=== PATIENT | male | born 1960 | race Caucasian/White ===

== ENCOUNTER 2018-09-13 01:46 | Observation (INO) | payer OTHER, MEDICAID ==
[2018-09-13 04:57] LABS: ADD MAN DIFF? NO
[2018-09-13 05:01] LABS: BASOPHILS % 0.5 % (0.0-2.0); EOSINOPHILS # 0.1 10^3/ul (0.0-0.5); EOSINOPHILS % 1.1 % (0.0-7.0); HEMATOCRIT 39.9 % (42.0-52.0); HEMOGLOBIN 14.5 g/dl (14.0-18.0); LYMPHOCYTES # 1.6 10^3/ul (0.8-2.9); LYMPHOCYTES % 24.6 % (15.0-51.0); MEAN CORPUSCULAR HEMOGLOBIN 31.3 pg (29.0-33.0); MEAN CORPUSCULAR HGB CONC 36.3 g/dl (32.0-37.0); MEAN PLATELET VOLUME 9.4 fl (7.4-10.4); MONOCYTE # 0.5 10^3/ul (0.3-0.9); MONOCYTES % 6.8 % (0.0-11.0); NEUTROPHIL # 4.4 10^3/ul (1.6-7.5); NEUTROPHILS % 66.8 % (39.0-77.0); PLATELET COUNT 216 10^3/UL (140-415); RED BLOOD COUNT 4.64 10^6/ul (4.70-6.10); RED CELL DISTRIBUTION WIDTH 12.4 % (11.5-14.5)
[2018-09-13 05:01] LABS: WHITE BLOOD COUNT 6.6 10^3/ul (4.8-10.8)
[2018-09-13 05:19] LABS: INR 0.89; PARTIAL THROMBOPLASTIN TIME 24.8 Sec (23.0-35.0); PROTIME 12.1 Sec (11.9-14.9); PT RATIO 0.9
[2018-09-13 05:30] LABS: ALANINE AMINOTRANSFERASE 57 IU/L (13-69); ALBUMIN 4.3 g/dl (3.3-4.9); ALBUMIN/GLOBULIN RATIO 1.19; ALKALINE PHOSPHATASE 192 IU/L (42-121); ANION GAP 10 (5-13); ASPARTATE AMINO TRANSFERASE 29 IU/L (15-46); BILIRUBIN,INDIRECT 0.1 mg/dl (0-1.1); BILIRUBIN,TOTAL 0.1 mg/dl (0.2-1.3); BLOOD UREA NITROGEN 12 mg/dl (7-20); CALCIUM 9.9 mg/dl (8.4-10.2); CARBON DIOXIDE 28 mmol/L (21-31); CHLORIDE 102 mmol/L (97-110); CREATININE 0.52 mg/dl (0.61-1.24); Estimated GFR > 60 mL/min (>60); GLUCOSE 231 mg/dl (70-220); SODIUM 140 mmol/L (135-144); TOTAL PROTEIN 7.9 g/dl (6.1-8.1)
[2018-09-13 05:39] LABS: TROPONIN-I < 0.012 ng/ml (0.000-0.120)
[2018-09-13 05:45] LABS: PHENYTOIN (DILANTIN) < 3.0 ug/ml (10.0-20.0)
[2018-09-13] MEDS ORDERED: ONDANSETRON 4 MG INJ IV (06:30)
[2018-09-13] MEDS ORDERED: ACETAMINOPHEN 325 MG TAB PO (06:30)
[2018-09-13] MEDS ORDERED: DOCUSATE SODIUM 100 MG CAP PO (06:30)
[2018-09-13] MEDS ORDERED: BISACODYL (EC) 5 MG TAB PO (06:30)
[2018-09-13] MEDS ORDERED: NACL 0.9% 3 ML SYG IV (06:30)
[2018-09-13] MEDS ORDERED: NITROGLYCERIN (SL) 0.4 MG TAB SL (06:30)
[2018-09-13 06:48] LABS: CHOLESTEROL 176 mg/dl (100-200); HDL CHOLESTEROL 58 mg/dl (28-71); LDL CHOLESTEROL,CALCULATED 106 mg/dl; TRIGLYCERIDES 61 mg/dl (0-149)
[2018-09-13] MEDS ORDERED: LORAZEPAM 4 MG/ML VIAL IV (07:00)
[2018-09-13 07:32] LABS: HEMOGLOBIN A1C 11.8 % (0-5.9)
[2018-09-13 08:07] LABS: HEPATITIS B SURFACE ANTIGEN NEGATIVE (NEGATIVE)
[2018-09-13 08:24] LABS: HEPATITIS B SURFACE ANTIBODY NEGATIVE (NEGATIVE)
[2018-09-13 08:24] LABS: HEPATITIS C VIRAL ANTIBODY NEGATIVE (NEGATIVE); HIV 1&2 ANTIBODY NEGATIVE (NEGATIVE)
[2018-09-13] MEDS: INSULIN ASPART [NOVOLOG] 3 ML PEN SC ×7 (09:00→21:00)
[2018-09-13] MEDS ORDERED: GLUCOSE GEL 15 GRAM TUBE BUCCAL (09:30)
[2018-09-13] MEDS ORDERED: GLUCAGON 1 MG INJ IM (09:30)
[2018-09-13] MEDS ORDERED: DEXTROSE 50% 50 ML SYRINGE IV ×2 (09:30)
[2018-09-13] MEDS ORDERED: GLUCOSE GEL 15 GRAM TUBE PO ×2 (09:30)
[2018-09-13] MEDS: ASPIRIN 81 MG TAB PO (10:01)
[2018-09-13] MEDS: ATORVASTATIN 10 MG TAB PO (10:01)
[2018-09-13] MEDS: DONEPEZIL 10 MG TAB PO (10:02)
[2018-09-13] MEDS: PHENYTOIN 100 MG CAP PO ×2 (10:27→21:48)
[2018-09-13] MEDS: LEVETIRACETAM 500 MG TAB PO ×2 (10:27→21:48)
[2018-09-13 11:15] LABS: CREATINE KINASE 54 IU/L (23-200)
[2018-09-13 11:25] LABS: CK INDEX 2.1; CK-MB 1.16 ng/ml (0.0-2.4); TROPONIN-I < 0.012 ng/ml (0.000-0.120)
[2018-09-13 14:42] LABS: CREATINE KINASE 50 IU/L (23-200)
[2018-09-13 14:56] LABS: CK INDEX 1.7; CK-MB 0.86 ng/ml (0.0-2.4); TROPONIN-I < 0.012 ng/ml (0.000-0.120)
[2018-09-13] MEDS ORDERED: INSULIN GLARGINE [LANTus] (100 UNITS/ML) SYG SC (21:00)
[2018-09-13] MEDS: ACCU-CHEK XX (21:43)
[2018-09-13] MEDS: INSULIN GLARGINE [LANTus] (100 UNITS/ML) SYG SC (22:05)
[2018-09-14 05:50] LABS: ADD MAN DIFF? NO
[2018-09-14 05:54] LABS: WHITE BLOOD COUNT 4.8 10^3/ul (4.8-10.8)
[2018-09-14 05:54] LABS: BASOPHILS % 0.8 % (0.0-2.0); EOSINOPHILS # 0.1 10^3/ul (0.0-0.5); EOSINOPHILS % 2.1 % (0.0-7.0); HEMATOCRIT 39.1 % (42.0-52.0); HEMOGLOBIN 13.9 g/dl (14.0-18.0); LYMPHOCYTES # 1.9 10^3/ul (0.8-2.9); MEAN CORPUSCULAR HEMOGLOBIN 31.4 pg (29.0-33.0); MEAN CORPUSCULAR HGB CONC 35.5 g/dl (32.0-37.0); MEAN CORPUSCULAR VOLUME 88.3 fl (82.0-101.0); MEAN PLATELET VOLUME 9.5 fl (7.4-10.4); MONOCYTE # 0.4 10^3/ul (0.3-0.9); MONOCYTES % 9.2 % (0.0-11.0); NEUTROPHIL # 2.3 10^3/ul (1.6-7.5); NEUTROPHILS % 48.7 % (39.0-77.0); PLATELET COUNT 208 10^3/UL (140-415); RED BLOOD COUNT 4.43 10^6/ul (4.70-6.10); RED CELL DISTRIBUTION WIDTH 12.6 % (11.5-14.5)
[2018-09-14 06:42] LABS: ALANINE AMINOTRANSFERASE 47 IU/L (13-69); ALBUMIN 3.7 g/dl (3.3-4.9); ALBUMIN/GLOBULIN RATIO 1.15; ALKALINE PHOSPHATASE 134 IU/L (42-121); ANION GAP 10 (5-13); ASPARTATE AMINO TRANSFERASE 22 IU/L (15-46); BILIRUBIN,INDIRECT 0.1 mg/dl (0-1.1); BILIRUBIN,TOTAL 0.1 mg/dl (0.2-1.3); BLOOD UREA NITROGEN 18 mg/dl (7-20); CALCIUM 9.5 mg/dl (8.4-10.2); CARBON DIOXIDE 26 mmol/L (21-31); CHLORIDE 104 mmol/L (97-110); CREATININE 0.65 mg/dl (0.61-1.24); Estimated GFR > 60 mL/min (>60); GLUCOSE 267 mg/dl (70-220); POTASSIUM 4.3 mmol/L (3.5-5.1); SODIUM 140 mmol/L (135-144); TOTAL PROTEIN 6.9 g/dl (6.1-8.1)
[2018-09-14] MEDS: INSULIN ASPART [NOVOLOG] 3 ML PEN SC ×4 (07:46→12:52)
[2018-09-14] MEDS: PHENYTOIN 100 MG CAP PO (08:44)
[2018-09-14] MEDS: metFORMIN 500 MG TAB PO (08:44)
[2018-09-14] MEDS: LEVETIRACETAM 500 MG TAB PO (08:44)
[2018-09-14] MEDS: ATORVASTATIN 10 MG TAB PO (08:44)
[2018-09-14] MEDS: ASPIRIN 81 MG TAB PO (08:44)
[2018-09-14] MEDS: DONEPEZIL 10 MG TAB PO (08:44)
[2018-09-14] MEDS ORDERED: LORAZEPAM 2 MG INJ IV (11:00)
[2018-09-14] MEDS ORDERED: INSULIN GLARGINE [LANTus] (100 UNITS/ML) SYG SC (21:00)
== END 2018-09-14 14:30 | disposition home or self-care (01) ==
LOC: E/R 01:46 → 6WM 05:52
PROVIDERS: Family Medicine
DX: R07.9 Chest pain, unspecified (principal); E11.9 Type 2 diabetes mellitus without complications; Z79.4 Long term (current) use of insulin; G40.909 Epilepsy, unspecified, not intractable, without status epilepticus; F03.90 Unspecified dementia, unspecified severity, without behavioral disturbance, psychotic disturbance, mood disturbance, and anxiety
CPT/HCPCS: 36415; 71045; 80053; 80061; 80185; 82550; 82553; 82962; 83036; 83735; 84443; 84484; 85025; 85610; 85730; 86703; 86706; 86803; 87340; 93005; 93306; 99285-25; G0378

== ENCOUNTER 2018-11-01 22:38 | Emergency (ER) | payer MEDICARE, OTHER, MEDICAID ==
[2018-11-02] MEDS: SOD CHLORIDE 0.9% 680 ML IV (02:01)
[2018-11-02 02:06] LABS: URINE BLOOD (Dip) POC Negative (NEGATIVE); URINE KETONES (Dip) POC Negative (NEGATIVE); URINE LEUKOCYTE EST (Dip) POC Negative (NEGATIVE); URINE NITRITE (Dip) POC Negative (NEGATIVE); URINE TOTAL PROTEIN POC Negative (NEGATIVE)
[2018-11-02 02:07] LABS: ADD MAN DIFF? NO
[2018-11-02 02:22] LABS: ADD UMIC YES; UR ASCORBIC ACID NEGATIVE (NEGATIVE); UR BILIRUBIN (Dip) NEGATIVE (NEGATIVE); UR BLOOD (Dip) 1+ mg/dL (NEGATIVE); UR CLARITY CLEAR (CLEAR); UR COLOR COLORLESS (YELLOW); UR GLUCOSE (Dip) 2+ mg/dL (NEGATIVE); UR KETONES (Dip) NEGATIVE (NEGATIVE); UR LEUKOCYTE ESTERASE (Dip) NEGATIVE Leu/ul (NEGATIVE); UR NITRITE (Dip) NEGATIVE (NEGATIVE); UR RBC 0 /HPF (0-5); UR SPECIFIC GRAVITY (Dip) 1.003 (1.003-1.030); UR TOTAL PROTEIN (Dip) NEGATIVE (NEGATIVE); UR UROBILINOGEN (Dip) NEGATIVE (NEGATIVE); UR WBC 0 /HPF (0-5)
[2018-11-02 02:27] LABS: ANION GAP 10 (5-13); BLOOD UREA NITROGEN 17 mg/dl (7-20); CALCIUM 9.3 mg/dl (8.4-10.2); CARBON DIOXIDE 26 mmol/L (21-31); CHLORIDE 103 mmol/L (97-110); CREATININE 0.63 mg/dl (0.61-1.24); Estimated GFR > 60 mL/min (>60); GLUCOSE 184 mg/dl (70-220); MAGNESIUM 1.9 mg/dl (1.7-2.5); PHOSPHORUS 3.7 mg/dl (2.5-4.9); POTASSIUM 3.8 mmol/L (3.5-5.1); SODIUM 139 mmol/L (135-144)
[2018-11-02 02:34] LABS: MODE ROOM AIR; MetHgb Venous 0.3 %; Sample Type Blood venous; Site VENOUS LINE; Venous COHb 0.2 %; Venous Fraction OxyHgb 77.3 %; Venous Oxygen Sat 77.7 mmHG (55.0-75.0); Venous Total Hemglobin 14.1 g/dl
[2018-11-02 02:37] LABS: WHITE BLOOD COUNT 7.2 10^3/ul (4.8-10.8)
[2018-11-02 02:37] LABS: BASOPHILS % 0.4 % (0.0-2.0); EOSINOPHILS # 0.1 10^3/ul (0.0-0.5); EOSINOPHILS % 1.1 % (0.0-7.0); LYMPHOCYTES # 1.5 10^3/ul (0.8-2.9); MEAN CORPUSCULAR HEMOGLOBIN 31.3 pg (29.0-33.0); MEAN CORPUSCULAR HGB CONC 35.1 g/dl (32.0-37.0); MEAN CORPUSCULAR VOLUME 89.2 fl (82.0-101.0); MEAN PLATELET VOLUME 9.4 fl (7.4-10.4); MONOCYTE # 0.6 10^3/ul (0.3-0.9); MONOCYTES % 8.7 % (0.0-11.0); NEUTROPHILS % 68.5 % (39.0-77.0); PLATELET COUNT 190 10^3/UL (140-415); RED BLOOD COUNT 4.15 10^6/ul (4.70-6.10); RED CELL DISTRIBUTION WIDTH 12.1 % (11.5-14.5)
== END 2018-11-02 03:13 | disposition home or self-care (01) ==
LOC: E/R 22:38
DX: E11.65 Type 2 diabetes mellitus with hyperglycemia (principal); D64.9 Anemia, unspecified; Z79.4 Long term (current) use of insulin; Z79.82 Long term (current) use of aspirin
CPT/HCPCS: 36415; 80048; 81001; 81003; 82803; 82962; 83735; 84100; 85025; 99284-25

== ENCOUNTER 2018-12-09 09:18 | Emergency (ER) | payer MEDICARE, OTHER ==
[2018-12-09] MEDS: SOD CHLORIDE 0.9% 1,000 ML IV (09:46)
[2018-12-09] MEDS: ONDANSETRON 4 MG INJ IV (09:46)
[2018-12-09 09:53] LABS: ADD MAN DIFF? NO
[2018-12-09 09:55] LABS: BASOPHILS % 0.3 % (0.0-2.0); EOSINOPHILS # 0.1 10^3/ul (0.0-0.5); EOSINOPHILS % 0.8 % (0.0-7.0); HEMATOCRIT 38.1 % (42.0-52.0); HEMOGLOBIN 13.2 g/dl (14.0-18.0); LYMPHOCYTES # 2.8 10^3/ul (0.8-2.9); LYMPHOCYTES % 25.3 % (15.0-51.0); MEAN CORPUSCULAR HEMOGLOBIN 30.7 pg (29.0-33.0); MEAN CORPUSCULAR HGB CONC 34.6 g/dl (32.0-37.0); MEAN CORPUSCULAR VOLUME 88.6 fl (82.0-101.0); MEAN PLATELET VOLUME 9.2 fl (7.4-10.4); MONOCYTE # 0.7 10^3/ul (0.3-0.9); NEUTROPHIL # 7.5 10^3/ul (1.6-7.5); NEUTROPHILS % 67.1 % (39.0-77.0); PLATELET COUNT 208 10^3/UL (140-415); RED CELL DISTRIBUTION WIDTH 12.2 % (11.5-14.5)
[2018-12-09 09:55] LABS: WHITE BLOOD COUNT 11.1 10^3/ul (4.8-10.8)
[2018-12-09 10:08] LABS: ADD UMIC YES; UR ASCORBIC ACID NEGATIVE (NEGATIVE); UR BILIRUBIN (Dip) NEGATIVE (NEGATIVE); UR BLOOD (Dip) 1+ mg/dL (NEGATIVE); UR CLARITY CLEAR (CLEAR); UR COLOR STRAW (YELLOW); UR GLUCOSE (Dip) 3+ mg/dL (NEGATIVE); UR KETONES (Dip) TRACE mg/dL (NEGATIVE); UR LEUKOCYTE ESTERASE (Dip) NEGATIVE Leu/ul (NEGATIVE); UR NITRITE (Dip) NEGATIVE (NEGATIVE); UR RBC 1 /HPF (0-5); UR SPECIFIC GRAVITY (Dip) 1.009 (1.003-1.030); UR TOTAL PROTEIN (Dip) 1+ mg/dl (NEGATIVE); UR UROBILINOGEN (Dip) NEGATIVE (NEGATIVE); UR WBC 0 /HPF (0-5)
[2018-12-09 10:12] LABS: ANION GAP 13 (5-13); BLOOD UREA NITROGEN 19 mg/dl (7-20); CARBON DIOXIDE 24 mmol/L (21-31); CHLORIDE 103 mmol/L (97-110); CREATININE 0.75 mg/dl (0.61-1.24); GLUCOSE 285 mg/dl (70-220); POTASSIUM 3.8 mmol/L (3.5-5.1); SODIUM 140 mmol/L (135-144)
[2018-12-09 10:13] LABS: ALANINE AMINOTRANSFERASE 20 IU/L (13-69); ALBUMIN 4.1 g/dl (3.3-4.9); ALBUMIN/GLOBULIN RATIO 1.28; ALKALINE PHOSPHATASE 165 IU/L (42-121); ASPARTATE AMINO TRANSFERASE 19 IU/L (15-46); BILIRUBIN,INDIRECT 0.2 mg/dl (0-1.1); BILIRUBIN,TOTAL 0.2 mg/dl (0.2-1.3); Estimated GFR > 60 mL/min (>60); LIPASE 141 U/L (23-300); TOTAL PROTEIN 7.3 g/dl (6.1-8.1)
[2018-12-09 10:14] LABS: PROTIME 12.3 Sec (11.9-14.9)
[2018-12-09 10:15] LABS: PARTIAL THROMBOPLASTIN TIME 24.5 Sec (23.0-35.0)
[2018-12-09 10:24] LABS: TROPONIN-I < 0.012 ng/ml (0.000-0.120)
== END 2018-12-09 12:09 | disposition home or self-care (01) ==
LOC: E/R 09:18
DX: E86.0 Dehydration (principal); R53.1 Weakness; E11.9 Type 2 diabetes mellitus without complications; I10 Essential (primary) hypertension; Z79.4 Long term (current) use of insulin
CPT/HCPCS: 36415; 71045; 80053; 81001; 82962; 83690; 84484; 85025; 85610; 85730; 96374; 99285-25

== ENCOUNTER 2018-12-09 13:12 | Emergency (ER) | payer MEDICARE, OTHER ==
[2018-12-09 13:37] LABS: ADD MAN DIFF? NO
[2018-12-09 13:42] LABS: BASOPHILS % 0.3 % (0.0-2.0); EOSINOPHILS % 0.2 % (0.0-7.0); HEMATOCRIT 38.2 % (42.0-52.0); LYMPHOCYTES # 1.4 10^3/ul (0.8-2.9); LYMPHOCYTES % 14.7 % (15.0-51.0); MEAN CORPUSCULAR HEMOGLOBIN 30.7 pg (29.0-33.0); MEAN CORPUSCULAR VOLUME 90.3 fl (82.0-101.0); MEAN PLATELET VOLUME 9.4 fl (7.4-10.4); MONOCYTE # 0.5 10^3/ul (0.3-0.9); MONOCYTES % 5.5 % (0.0-11.0); NEUTROPHIL # 7.5 10^3/ul (1.6-7.5); NEUTROPHILS % 78.9 % (39.0-77.0); PLATELET COUNT 218 10^3/UL (140-415); RED BLOOD COUNT 4.23 10^6/ul (4.70-6.10); RED CELL DISTRIBUTION WIDTH 12.2 % (11.5-14.5)
[2018-12-09 13:42] LABS: WHITE BLOOD COUNT 9.5 10^3/ul (4.8-10.8)
[2018-12-09] MEDS: LEVETIRACETAM 1000 MG (PMX) 100 ML IVPB (13:48)
[2018-12-09] MEDS: ONDANSETRON 4 MG INJ IV (13:49)
[2018-12-09] MEDS: HYDROmorphONE 1 MG/ML SYG IV (13:49)
[2018-12-09] MEDS: SOD CHLORIDE 0.9% 1,000 ML IV (13:49)
[2018-12-09 13:56] LABS: ALANINE AMINOTRANSFERASE 18 IU/L (13-69); ALBUMIN 3.8 g/dl (3.3-4.9); ALBUMIN/GLOBULIN RATIO 1.18; ALKALINE PHOSPHATASE 151 IU/L (42-121); ANION GAP 19 (5-13); ASPARTATE AMINO TRANSFERASE 22 IU/L (15-46); BILIRUBIN,INDIRECT 0.3 mg/dl (0-1.1); BILIRUBIN,TOTAL 0.3 mg/dl (0.2-1.3); BLOOD UREA NITROGEN 16 mg/dl (7-20); CALCIUM 9.2 mg/dl (8.4-10.2); CARBON DIOXIDE 15 mmol/L (21-31); CHLORIDE 108 mmol/L (97-110); CREATININE 0.81 mg/dl (0.61-1.24); Estimated GFR > 60 mL/min (>60); GLUCOSE 312 mg/dl (70-220); POTASSIUM 4.5 mmol/L (3.5-5.1); SODIUM 142 mmol/L (135-144)
[2018-12-09 14:08] LABS: TROPONIN-I < 0.012 ng/ml (0.000-0.120)
== END 2018-12-09 17:48 | disposition home or self-care (01) ==
LOC: E/R 13:12
DX: G40.909 Epilepsy, unspecified, not intractable, without status epilepticus (principal); I10 Essential (primary) hypertension; E11.9 Type 2 diabetes mellitus without complications; Z79.4 Long term (current) use of insulin; Z79.82 Long term (current) use of aspirin
CPT/HCPCS: 36415; 70450; 72125; 80053; 84484; 85025; 96374; 96375; 99285-25